=== PATIENT | female | born 1985 | race American Indian/Alaskan Native ===

== ENCOUNTER 2018-03-25 18:09 | Emergency (ER) | payer OTHER ==
[~2018-03-25] VITALS: Ht 165.1 cm; Wt 70.3 kg
[~2018-03-25 18:09] MED LIST: FLEXERIL10 MG; RELAFEN500 MG
== END 2018-03-25 19:13 | disposition home or self-care (01) ==
LOC: ER 18:09
DX: H66.001 Acute suppurative otitis media without spontaneous rupture of ear drum, right ear (principal); H60.8X1 Other otitis externa, right ear

== ENCOUNTER 2019-09-10 13:43 | Emergency (ER) | payer OTHER ==
[~2019-09-10] VITALS: Ht 144.8 cm; Wt 63.5 kg
== END 2019-09-10 18:46 | disposition home or self-care (01) ==
LOC: ER 13:43
DX: J98.01 Acute bronchospasm (principal); J06.9 Acute upper respiratory infection, unspecified

== ENCOUNTER 2019-09-19 13:06 | Emergency (ER) | payer OTHER ==
[~2019-09-19] VITALS: Ht 144.8 cm; Wt 62.6 kg
== END 2019-09-19 17:54 | disposition home or self-care (01) ==
LOC: ER 13:06
DX: L02.31 Cutaneous abscess of buttock (principal); B96.89 Other specified bacterial agents as the cause of diseases classified elsewhere; B95.2 Enterococcus as the cause of diseases classified elsewhere

== ENCOUNTER 2019-10-03 13:53 | Outpatient (CLI) | payer OTHER | END 2019-10-03 14:57 | disposition HB | LOC: LAB 13:53 | DX: L02.31 Cutaneous abscess of buttock (principal) ==

== ENCOUNTER 2021-06-15 23:32 | Emergency (ER) | payer OTHER ==
[~2021-06-15] VITALS: Ht 144.8 cm; Wt 56.7 kg
[2021-06-16] MEDS ORDERED: COZAAR25 MG PO (02:34)
== END 2021-06-16 02:40 | disposition home or self-care (01) ==
LOC: ER 23:32
DX: G44.89 Other headache syndrome (principal); I10 Essential (primary) hypertension